=== PATIENT | female | born 1965 | race Hispanic/Latino ===

== ENCOUNTER 2017-09-10 09:22 | Emergency (ER) | payer OTHER ==
[~2017-09-10] VITALS: Ht 152.4 cm; Wt 86.2 kg
[~2017-09-10 09:22] MED LIST: GABAPENTIN600 M1 PO; IBUPROFEN800 M1 PO; LEVAQUIN750 MG PO; MEDROL4 M2 PO; NORCO 325 MG-7.1 TAB PO; PERCOCET 5-3251 EACH PO; REGLAN10 MG PO; ROBITUSSIN W/CO10 ML PO; TAMIFLU 75MG75 MG PO; VALIUM5 M2 PO; VITAMIN D31000 UNI1 PO
--- NOTE | 2017-09-10 10:52 | ED UPPER/LOWER EXTREMITY COMPL ---
History of Present Illness General Chief Complaint: Fall Stated Complaint: R KNEE R ANKLE PAIN S/P FALL Source: patient, family Exam Limitations: no limitations Vital Signs & Intake/Output Vital Signs & Intake/Output Vital Signs Date Time Temp Pulse Resp B/P B/P Pulse O2 O2 Flow FiO2 Mean Ox Delivery Rate 09/10 1212 98.3 80 14 128/79 99 Room Air 09/10 0932 97.8 82 16 132/82 99 Room Air Allergies Coded Allergies: red dye (HIVES AND SWELLING 03/24/17) shellfish derived (UNKNOWN 03/24/17) Triage Note: PT STATES THAT SHE WAS STANDING ON CHAIR AND SHE FELL, STATES THAT SHE TWISTED HER R ANKLE AND KNEE AND HIT HER LOW BACK ON ANOTHER CHAIR. DECLINES MEDS AT TRIAGE Triage Nurses Notes Reviewed? yes HPI: 52 yo F PMH LBM, Nephrolithiasis presenting with ankle pain, knee pain s/p fall. Patient states that she was standing on a chair this morning, lost her footing and fell landing on right ankle and knee, inversion of right foot, pain at lateral malleolus and lateral knee since that time, able to bear weight, but uncomfortable. Denies associated motor or sensory deficits. Denies head/neck strike, LOC, neck pain, N/V, or focal neurologis Sx. ROS (+) for chronic lower back pain. Denies fevers, chiils, chest pain, abdominal pain, bowel or bladder incontinence, saddle anesthesia, urinary Sx. (Mika GREEN,Jameson) Reconcile Medications Oxycodone HCl 5 MG TABLET 1 TAB PO 4XDP Ankle Pain (Abelino Saunders DO) Past History Travel History Traveled to [place] past 21 day No Medical History Any Pertinent Medical History? see below for history Neurological: NONE EENT: NONE Cardiovascular: NONE Respiratory: NONE Gastrointestinal: NONE Hepatic: NONE Renal: KIDNEY STONES Musculoskeletal: chronic back pain Psychiatric: NONE Endocrine: NONE Blood Disorders: NONE Cancer(s): NONE CORRECTIONS CADET/Reproductive: NONE History of CDIFF: No Surgical History Surgical History: non-contributory Psychosocial History Who do you live with Family Services at Home None What is your primary language German Tobacco Use: Never used ETOH Use: denies use Illicit Drug Use: denies illicit drug use Family History Family History, If Any: No Known Family History. Hx Contributory? Yes (Mika GREEN,Jameson) Review of Systems Review of Systems Constitutional: Reports: no symptoms. EENTM: Reports: no symptoms. Respiratory: Reports: no symptoms. Cardiovascular: Reports: no symptoms. Gastrointestinal/Abdominal: Reports: no symptoms. Genitourinary: Reports: no symptoms. Musculoskeletal: Reports: see HPI. Skin: Reports: no symptoms. Neurological/Psychological: Reports: no symptoms. Hematologic/Endocrine: Reports: no symptoms. Immunological: Reports: no symptoms. All Other Systems: Reviewed and Negative (Jameson Brennan MD) Physical Exam Physical Exam General Appearance: well developed/nourished, mild distress Head: atraumatic Eyes: Bilateral: PERRL, EOMI. Ears, Nose, Throat: normal pharynx, normal ENT inspection, hearing grossly normal Neck: normal inspection, supple, no midline tenderness Cardiovascular/Respiratory: regular rate/rhythm Back: normal inspection Skin: intact, normal color, warm/dry Lymphatic: no anterior cervical harriett Comments: HEENT: Atraumatic C-spine: No midline c-spine TTP with full ROM Back: TTP over right lumbar paraspinal muscles without midline bony verterbral TTP Right Knee: Mild TTP over lateral knee joint without effusion Right Ankle: TTP over lateral malleolus with swelling and ecchymosis, no TTP over navicular bone, base of 5th metatarsal or medial malleolus Lower Extremities: 2+ DP/PT pulses bilaterally with symmetric tactile temperature sensation, no motor or sensory deficits (Jameson Brennan MD) Progress Differential Diagnosis: arterial insufficiency, cellulitis, CHF, compartment syndrome, contusion, dislocation, DVT, fracture, gout, septic arthritis, sprain, tendon injury Plan of Care: Orders Procedure Date/time Status Durable Medical Equipment 09/10 1207 Active Physician MDM: 56 yo F PMH HLD, GERD presenting with right lower extremity pain. VSS, trauma exam as above. DDx: Soft tissue injury, sprain/strain, Fracture, low concern for lumbar spinal Fx. Medicated with oxycodone and tylenol with improvement in pain. Right ankle and right knee XR without acute fracture or dislocation. Given teaching about symptomatic management of ankle sprain, discharged with air cast, pain control, and return precautions. (Jameson Brennan MD) Departure Departure Disposition: HOME OR SELF CARE Condition: Stable Clinical Impression Primary Impression: Ankle sprain Referrals: Eileen Arellano MD (PCP/Family) Additional Instructions: Take tylenol or ibuprofen for mild-moderate pain. Take oxycodone for severe pain. Follow up with your primary care physician in the next 2-3 days. Return to the ED for any new, worsening, or concerning symptoms. Departure Forms: Customer Survey General Discharge Information Prescriptions: Current Visit Scripts Oxycodone HCl 1 TAB PO 4XDP #8 TAB (Mika GREEN,Jameson) Resident Co-Sign Statement Statement: ED Attending supervision documentation- [] I saw and evaluated the patient. I have also reviewed all the pertinent lab results and diagnostic results. I agree with the findings and the plan of care as documented in the Resident's documentation. [X] I have reviewed the ED Record and agree with the Resident's documentation. [] Additions or exceptions (if any) to the Resident's note and plan are summarized below: [] (Abelino Saunders DO)
--- NOTE | 2017-09-10 11:23 | RADIOLOGY REPORT ---
EXAMINATION: RIGHT ANKLE 3 VIEWS CLINICAL INFORMATION: Right ankle pain following injury. COMPARISON: None. TECHNIQUE: AP, lateral, oblique views of the right ankle were obtained. FINDINGS: There are no fractures or dislocations. There is mild soft tissue swelling overlying the lateral malleolus. No ankle joint effusion is identified. There is a small plantar surface calcaneal spur. IMPRESSION: Mild soft tissue swelling without fracture or dislocation. Small plantar surface calcaneal spur.
--- NOTE | 2017-09-10 11:23 | RADIOLOGY REPORT ---
EXAMINATION: RIGHT KNEE 3 VIEWS CLINICAL INFORMATION: Right knee pain after fall. COMPARISON: None. TECHNIQUE: AP, lateral, oblique views of the right knee were obtained. FINDINGS: There are no fractures or dislocations. There is no knee joint effusion. There is no significant soft tissue swelling. IMPRESSION: Unremarkable right knee radiographs.
[2017-09-10] MEDS ORDERED: OXYCODONE HCL5 M1 PO (12:09)
[2017-09-10 12:12] VITALS: BP 128/79
== END 2017-09-10 12:22 ==
LOC: ERH 09:22
DX: S93.401A Sprain of unspecified ligament of right ankle, initial encounter (principal); M25.561 Pain in right knee; W17.89XA Other fall from one level to another, initial encounter; Y93.9 Activity, unspecified; Y92.9 Unspecified place or not applicable
CPT/HCPCS: 73560-RT; 73600-RT